=== PATIENT | male | born 1975 | race Caucasian/White ===

== ENCOUNTER 2017-03-30 01:54 | Emergency (ER) | payer MEDICAID ==
[~2017-03-30] VITALS: Ht 152.4 cm; Wt 69.0 kg
[2017-03-30 02:05] VITALS: Ht 152.4 cm; Wt 69.0 kg
[2017-03-30] MEDS ORDERED: SOD CHLORIDE 0.9% 500 ML IV STA (02:32)
[2017-03-30] MEDS ORDERED: ASPIRIN 325 MG TAB PO STA (02:32)
[2017-03-30 02:57] LABS: ADD SCAN DIFF NO
[2017-03-30] MEDS ORDERED: LIDOCAINE/MYLANTA 40 ML BTL PO STA (02:59)
[2017-03-30 03:00] LABS: BASOPHILS % 0.5 % (0.0-2.0); EOSINOPHILS # 0.1 10^3/ul (0.0-0.5); EOSINOPHILS % 1.9 % (0.0-7.0); HEMATOCRIT 44.8 % (42.0-52.0); HEMOGLOBIN 15.4 g/dl (14.0-18.0); LYMPHOCYTES # 2.5 10^3/ul (0.8-2.9); LYMPHOCYTES % 33.5 % (15.0-51.0); MEAN CORPUSCULAR HEMOGLOBIN 30.3 pg (29.0-33.0); MEAN CORPUSCULAR HGB CONC 34.4 g/dl (32.0-37.0); MEAN CORPUSCULAR VOLUME 88.2 fl (82.0-101.0); MEAN PLATELET VOLUME 10.7 fl (7.4-10.4); MONOCYTE # 0.6 10^3/ul (0.3-0.9); MONOCYTES % 8.1 % (0.0-11.0); NEUTROPHIL # 4.1 10^3/ul (1.6-7.5); NEUTROPHILS % 55.6 % (39.0-77.0); PLATELET COUNT 220 10^3/UL (140-415); RED BLOOD COUNT 5.08 10^6/ul (4.70-6.10); WHITE BLOOD COUNT 7.4 10^3/ul (4.8-10.8)
[2017-03-30 03:18] LABS: INR 0.91; PROTIME 12.3 Sec (12.2-14.2)
[2017-03-30 03:19] LABS: PARTIAL THROMBOPLASTIN TIME 26.4 Sec (25.0-35.0)
--- NOTE | 2017-03-30 03:21 | RADRPT ---
PROCEDURE: Chest. CLINICAL INDICATION: Chest pain. TECHNIQUE: Single frontal view of the chest was obtained. COMPARISON: None. FINDINGS: The cardiac silhouette is within normal limits. The aortic arch is unremarkable. There is no focal consolidation, vascular congestion or pleural effusion. There is no pneumothorax. IMPRESSION: No evidence for active cardiopulmonary disease. .Loc Carrasquillo MD, MD Date Time Electronically viewed and signed by .Loc Carrasquillo MD, on 03/30/2017 03:20 .T/
[2017-03-30 03:26] LABS: ALANINE AMINOTRANSFERASE 61 IU/L (13-69); ALBUMIN 4.9 g/dl (3.3-4.9); ALBUMIN/GLOBULIN RATIO 1.75; ALKALINE PHOSPHATASE 65 IU/L (42-121); ANION GAP 15 (8-16); ASPARTATE AMINO TRANSFERASE 36 IU/L (15-46); BILIRUBIN,INDIRECT 1.3 mg/dl (0-1.1); BILIRUBIN,TOTAL 1.3 mg/dl (0.2-1.3); BLOOD UREA NITROGEN 17 mg/dl (7-20); CALCIUM 9.2 mg/dl (8.4-10.2); CARBON DIOXIDE 27 mmol/L (21-31); CHLORIDE 100 mmol/L (97-110); CREATININE 0.89 mg/dl (0.61-1.24); GLUCOSE 128 mg/dl (70-220); POTASSIUM 3.6 mmol/L (3.5-5.1); SODIUM 138 mmol/L (135-144); TOTAL PROTEIN 7.7 g/dl (6.1-8.1)
[2017-03-30 03:36] LABS: B-TYPE NATRIURETIC PEPTIDE 39 PG/ML (0-125)
[2017-03-30 03:43] LABS: TROPONIN-I < 0.012 ng/ml (0.00-0.12)
[2017-03-30 04:30] VITALS: RESP 16
[2017-03-30 04:42] LABS: BARBITURATES Negative (NEGATIVE); BENZODIAZEPINES Negative (NEGATIVE); CANNABINOIDS Negative (NEGATIVE); COCAINE Negative (NEGATIVE); OPIATES Negative (NEGATIVE)
--- NOTE | 2017-03-30 04:44 | ERD ---
ER Documentation Chief Complaint Date/Time DATE: 03/30/17 TIME: 04:44 Chief Complaint chest pain started few hours ago HPI 41-year-old male says he had chest pain started a few hours ago. Burning epigastric and then radiated up to his chest. Mild to moderate intensity. No fevers no chills. No shortness of breath. He admits to drinking prior to going to bed. No other current issues. ROS All systems reviewed and are negative except as per history of present illness. PMhx/Soc Medical and Surgical Hx: pt denies Medical Hx, pt denies Surgical Hx History of Surgery: No Anesthesia Reaction: No Hx Neurological Disorder: No Hx Respiratory Disorders: No Hx Cardiac Disorders: No Hx Psychiatric Problems: No Hx Miscellaneous Medical Probl: No Hx Alcohol Use: Yes Hx Substance Use: Yes Hx Tobacco Use: No Smoking Status: Never smoker Physical Exam Vitals Vital Signs Date Time Temp Pulse Resp B/P Pulse Ox O2 Delivery O2 Flow Rate FiO2 03/30/17 02:05 98.6 71 20 148/94 98 Physical Exam Const: [] Head: Atraumatic Eyes: Normal Conjunctiva ENT: Normal External Ears, Nose and Mouth. Neck: Full range of motion..~ No meningismus. Resp: Clear to auscultation bilaterally Cardio: Regular rate and rhythm, no murmurs Abd: Soft, non tender, non distended. Normal bowel sounds Skin: No petechiae or rashes Back: No midline or flank tenderness Ext: No cyanosis, or edema Neur: Awake and alert Psych: Normal Mood and Affect Result Diagram: 03/30/17 0246 03/30/17 0246 Results 24 hrs Laboratory Tests Test 03/30/17 02:46 03/30/17 04:10 White Blood Count 7.410^3/ul Red Blood Count 5.0810^6/ul Hemoglobin 15.4g/dl Hematocrit 44.8% Mean Corpuscular Volume 88.2fl Mean Corpuscular Hemoglobin 30.3pg Mean Corpuscular Hemoglobin Concent 34.4g/dl Red Cell Distribution Width 12.0% Platelet Count 35036^3/UL Mean Platelet Volume 10.7fl Neutrophils % 55.6% Lymphocytes % 33.5% Monocytes % 8.1% Eosinophils % 1.9% Basophils % 0.5% Nucleated Red Blood Cells % 0.0/100WBC Neutrophils # 4.110^3/ul Lymphocytes # 2.510^3/ul Monocytes # 0.610^3/ul Eosinophils # 0.110^3/ul Basophils # 0.010^3/ul Nucleated Red Blood Cells # 0.010^3/ul Prothrombin Time 12.3Sec Prothrombin Time Ratio 1.0 INR International Normalized Ratio 0.91 Activated Partial Thromboplast Time 26.4Sec Sodium Level 138mmol/L Potassium Level 3.6mmol/L Chloride Level 100mmol/L Carbon Dioxide Level 27mmol/L Anion Gap 15 Blood Urea Nitrogen 17mg/dl Creatinine 0.89mg/dl Glucose Level 128mg/dl Calcium Level 9.2mg/dl Total Bilirubin 1.3mg/dl Direct Bilirubin 0.00mg/dl Indirect Bilirubin 1.3mg/dl Aspartate Amino Transf (AST/SGOT) 36IU/L Alanine Aminotransferase (ALT/SGPT) 61IU/L Alkaline Phosphatase 65IU/L Troponin I < 0.012ng/ml B-Type Natriuretic Peptide 39PG/ML Total Protein 7.7g/dl Albumin 4.9g/dl Globulin 2.80g/dl Albumin/Globulin Ratio 1.75 Urine Opiates Screen Negative Urine Barbiturates Negative Urine Amphetamines Screen Positive Urine Benzodiazepines Screen Negative Urine Cocaine Screen Negative Urine Cannabinoids Negative Current Medications Medications (Trade) Dose Ordered Sig/Ramandeep Route PRN Reason Start Time Stop Time Status Last Admin Dose Admin Sodium Chloride (NS) 500 ml @ 500 mls/hr Q1H STAT IV 03/30/17 02:32 03/30/17 03:31 DC 03/30/17 02:43 Aspirin (Aspirin) 325 mg ONCE STAT PO 03/30/17 02:32 03/30/17 02:34 DC 03/30/17 02:42 Miscellaneous Medication (Gi Cocktail (2)) 40 ml ONCE STAT PO 03/30/17 02:59 03/30/17 03:02 DC 03/30/17 03:14 Procedures/MDM EKG: Rate/Rhythm: [Normal Sinus Rhythm] QRS, ST, T-waves: [No changes consistent w/ acute ischemia] Impression: [No evidence of ischemia or arrhythmia] Chest X-ray 1V Interpreted by me: Soft Tissue: No acute abnormalities Bones: No acute abnormalities Mediastinum/Cardiac Silhouette/Lungs: [No acute abnormalities] Patient's thoracic symptoms have stabilized while in the department and are stable for outpatient follow up. Exam and work up not consistent w/ ischemia, arrhythmia, PE or dissection. Departure Diagnosis: Primary Impression: Chest pain Chest pain type: unspecified Qualified Code: R07.9 - Chest pain, unspecified type Additional Impression: Dyspepsia Condition: Stable JOSE SCHWARZ Mar 30, 2017 04:44
[2017-03-30 05:00] VITALS: BP 135/79; PULSE 72
== END 2017-03-30 05:00 | disposition home or self-care (01) ==
LOC: FTE 01:54
DX: R07.9 Chest pain, unspecified (principal); R10.13 Epigastric pain
CPT/HCPCS: 36415; 71010; 80053; 80307; 83880; 84484; 85025; 85610; 85730; 93005; J7040; Z7502; Z7610

== ENCOUNTER 2017-11-04 19:48 | Emergency (ER) | END 2017-11-05 | disposition home or self-care (01) ==

== ENCOUNTER 2018-03-01 21:38 | Emergency (ER) | END 2018-03-02 00:47 | disposition home or self-care (01) ==

== ENCOUNTER 2018-12-03 23:17 | Emergency (ER) | payer MEDICAID ==
[~2018-12-03] VITALS: Wt 69.5 kg
[~2018-12-03 23:17] MED LIST: NAPR-985 PO
[2018-12-03] MEDS ORDERED: KETOROLAC 15 MG INJ IV STA (23:42)
[2018-12-04] MEDS ORDERED: SOD CHLORIDE 0.9% 1,000 ML IV ONE
[2018-12-04] MEDS ORDERED: METOCLOPRAMIDE 10 MG INJ IV ONE
[2018-12-04] MEDS ORDERED: DIPHENHYDRAMINE 50 MG INJ IV ONE
--- NOTE | 2018-12-04 03:41 | ERD ---
ER Documentation Chief Complaint Chief Complaint DOHERTY/ LEFT SIDE FACIAL NUMBNESS X'S 2 DAYS HPI This is a 43-year-old male with no significant past medical history who is presenting with a waxing and waning throbbing aching headache for the last 1-2 days. The patient reportedly endorsed left-sided facial numbness in triage. The patient reports to me that both sides of his face have been tingling. The patient endorses photophobia and phonophobia. He has had nausea but no vomiting. The patient has not had a facial droop. He does not have any dysarthria or aphasia. The patient does not have a history of migraines or headaches. This headache has been progressive in nature. It was not suddenly severe. He does not have a personal or family history of cerebral aneurysm or sudden . The patient does not endorse any focal deficits. He does not endorse any focal weakness or numbness or tingling to the rest of the body. The patient denies feeling sick recently. The patient denies fever or chills. The patient does not endorse neck or back pain. The patient denies lightheadedness or dizziness. The patient has had no chest pain or trouble breathing. The patient denies nausea or vomiting. The patient denies abdominal pain. The patient denies changes to bowel movements or urination. ROS All systems reviewed and are negative except as per history of present illness. Medications Home Meds Active Scripts Ibuprofen* (Motrin*) 600 Mg Tab, 600 MG PO Q6H PRN for PAIN AND/OR INFLAMMATION, #30 TAB Prov:BEBE BEJARANO MD 12/04/18 Naproxen* (Naprosyn*) 500 Mg Tablet, 500 MG PO BID, #20 TAB Prov:GISSELL MONTALVO MD 03/01/18 Allergies Allergies: Coded Allergies: No Known Allergy (Unverified , 11/04/17) PMhx/Soc History of Surgery: Yes (jaw sx) Anesthesia Reaction: No Hx Neurological Disorder: No Hx Respiratory Disorders: No Hx Cardiac Disorders: No (high cholesterol) Hx Psychiatric Problems: No Hx Miscellaneous Medical Probl: No Hx Alcohol Use: Yes (occasionally) Hx Substance Use: No (denies) Hx Tobacco Use: No (denies) Smoking Status: Never smoker FmHx Family History: No diabetes Physical Exam Vitals Vital Signs Date Temp Pulse Resp B/P (MAP) Pulse Ox O2 O2 Flow FiO2 Time Delivery Rate 12/04/18 77 18 119/92 99 Room Air 04:00 (101) 12/04/18 79 16 114/88 100 Room Air 02:00 (97) 12/03/18 81 21 130/97 99 Room Air 23:52 (108) 12/03/18 99.7 88 18 152/82 98 23:22 (105) Physical Exam Const: No apparent distress, well-developed, well-nourished Head: Normocephalic, Atraumatic Eyes: Normal Conjunctiva. Extraocular movements intact. Pupils equal, round and reactive to light ENT: Normal External Ears, Nose and Mouth. Neck: Full range of motion. No meningismus. Resp: Clear to auscultation bilaterally, No wheezes, rales or rhonchi Cardio: Regular rate and rhythm. No murmurs, rubs or gallops Abd: Soft, non tender, non distended. Normal bowel sounds Skin: No petechiae or rashes Back: No midline tenderness. No CVA tenderness Ext: No cyanosis, or edema Neur: Awake and alert, oriented 4. Cranial nerves intact. No facial droop. Normal strength, sensation and coordination. Psych: Normal Mood and Affect Results 24 hrs Current Medications Medications Dose Sig/Ramandeep Start Time Status Last (Trade) Ordered Route PRN Stop Time Admin Dose Reason Admin Ketorolac 15 mg ONCE STAT 12/03/18 DC 12/04/18 Tromethamine IV 23:42 00:33 (Toradol) 12/03/18 23:44 10 mg ONCE ONCE 12/04/18 DC 12/04/18 Metoclopramid IV 00:00 00:33 e HCl 12/04/18 00:01 (Reglan) 25 mg ONCE ONCE 12/04/18 DC 12/04/18 Diphenhydrami IV 00:00 00:33 ne HCl 12/04/18 00:01 (Benadryl) Sodium 1,000 ml @ Q1H ONCE 12/04/18 DC 12/04/18 Chloride 1,000 mls/hr IV 00:00 00:33 12/04/18 00:59 Procedures/MDM MDM The patient's presentation warrants further investigation. Previous medical records, if available, were reviewed. The patient presents with a headache. Differential diagnosis includes migraine, tension headache, cluster headache. The patient has no focal deficits. The neurologic exam is reassuring. I have decreased suspicion for cerebral ischemia. There was no trauma or injury. There is no personal or family history of cerebral aneurysm. This is not the worst headache of the patient's life. It was not acutely severe. It is been progressive in nature. I have decreased suspicion for SAH or other ICH. I have low suspicion for temporal arteritis, cavernous venous thrombosis, subdural hematoma, epidural hematoma, meningitis. TREATMENT/DISPOSITION The patient was treated with IV fluids, Toradol, Reglan and Benadryl with significant improvement of his symptoms. Upon reevaluation of the patient, symptoms have improved. No emergent diagnoses were identified. At this time, I feel that the patient stable for discharge. The patient was instructed to follow-up with a primary care physician in 1-3 days. The patient will be given strict precautions with which to return to the emergency department. Prescriptions: Ibuprofen The patient's blood pressure was elevated at greater than 120/80 while in the emergency department. The patient was otherwise stable with no evidence of hypertensive urgency or emergency. The patient does not require admission for blood pressure control. I have discussed with the patient the risks of hypertension. I have instructed the patient to return to the ER for any new or worsening symptoms including chest pain, shortness of breath, headache, blurred vision, confusion, nausea, vomiting or LOC. I have advised the patient to follow up with the primary care physician for outpatient monitoring and treatment for hypertension in 1-3 days. Disclaimer: Inadvertent spelling and grammatical errors are likely due to EHR/dictation software use and do not reflect on the overall quality of patient care. Note that the electronic time recorded on this note does not necessarily reflect the actual time of the patient encounter. Departure Diagnosis: Primary Impression: Headache Headache type: unspecified Headache chronicity pattern: acute headache Intractability: not intractable Qualified Codes: R51 - Headache Condition: Stable Patient Instructions: Self-Care for Headaches Additional Instructions: Thank you for for coming to [facility] for your care today. Please ask your nurse or provider if you have questions about your care today and do not leave until all your questions have been answered. Please use any medications given as directed and follow-up with your doctor (or the doctor you were referred to) in the next 1-3 days. If you do not have a primary care doctor you may follow up at the [facility] or [facility] (listed below). You may also use motrin and tylenol as needed for fever and/or pain unless instructed otherwise by your provider or nurse. Indications for more urgent follow-up have been discussed, but you may return to the Emergency Department at ANY time for any worrisome or worsening symptoms. If you have abdominal pain, please know that no test or exam you received is perfect and you should follow up within 8 hours for continued pain. If you had any imaging studies today, such as an X-Ray or CT Scan, these studies will be reviewed later by a radiologist. You will be called if there are important findings that were not identified today, so make sure the contact information you provided at registration is correct. If you received any narcotic pain control medicine today, such as Vicodin, Morphine or Dilaudid, your coordination and judgment may be affected for a number of hours. Please do not drive or operate heavy machinery, and you may want someone to assist you at home. If you were given a prescription for narcotic medication, be aware that it is very addictive- use sparingly and only if necessary. PLEASE SEEK FURTHER EVALUATION AND MANAGEMENT AT YOUR DOCTORS OFFICE WITHIN THE NEXT 1-3 DAYS. IT IS YOUR RESPONSIBILITY TO MAKE AN APPOINTMENT FOR FOLOW-UP CARE. IF YOU HAVE A PRIMARY DOCTOR, PLEASE CALL THEIR OFFICE TO SCHEDULE AN APPOINTMENT FOR FOLLOW UP. IF YOU DO NOT HAVE A PRIMARY DOCTOR YOU CAN CALL OUR PHYSICIAN REFERRAL HOTLINE AT IF YOU CAN NOT AFFORD TO SEE A PHYSICIAN YOU CAN CHOSE FROM THE FOLLOWING [facility] CLINICS: [facility] [address] [facility] [address] [facility] [place] [address] [facility] [address] [facility] [address] [facility]. [facility]. [address] BEBE OLIVA MD Dec 04, 2018 03:41
[2018-12-04] MEDS ORDERED: IBUP-1542 PO (03:43)
[2018-12-04 04:00] VITALS: BP 119/92; PULSE 77; RESP 18
== END 2018-12-04 04:01 | disposition home or self-care (01) ==
LOC: E/R 23:17
DX: R51 Headache (principal); R40.2142 Coma scale, eyes open, spontaneous, at arrival to emergency department; R40.2362 Coma scale, best motor response, obeys commands, at arrival to emergency department; R40.2252 Coma scale, best verbal response, oriented, at arrival to emergency department
CPT/HCPCS: 96374; 96375; J1200; J1885; J2765; J7030; Z7502